=== PATIENT | male | born 1945 | race Asian ===

== ENCOUNTER 2022-05-28 11:48 | Emergency (ER) | payer MEDICARE, SELFPAY ==
--- NOTE | ~2022-05-28 | XR_ITS ---
EXAMINATION: XR knee RT min 4V DATE: 05/28/2022 14:08 INDICATION: Right knee replacement. Right knee pain. TECHNIQUE: 4 views of right knee were obtained. COMPARISON: None. FINDINGS: There is a total right knee arthroplasty. The tibia demonstrates 9 degrees medial angulatio n with respect to the tibial component. No periprosthetic lucency to suggest loosening or infection. No fracture. There is a small knee joint effusion. IMPRESSION: 1. Total right knee arthroplasty with 9 degrees medial angulation of the tibia respect to the tibial component. 2. Small right knee joint effusion. Reviewed, dictated and finalized at location A.
--- NOTE | ~2022-05-28 | XR_ITS ---
EXAMINATION: XR chest 2V DATE: 05/28/2022 12:27 INDICATION: Shortness of breath and productive cough TECHNIQUE: PA and lateral views of the chest are obtained. COMPARISON: None available FINDINGS: The lungs are free of acute opacities. No pleural effusion or pneumothorax. The cardiomedia stinal silhouette is normal. There is moderate thoracic spondylosis. Calcified coronary artery athero sclerosis is noted. IMPRESSION: 1. No acute cardiopulmonary abnormality. Reviewed, dictated and finalized at location A.
[2022-05-28 11:51] VITALS: BP 129/85; PULSE 86; RESP 16; TEMP 36.9; O2SAT 95
--- NOTE | 2022-05-28 11:51 | ECG_ITS ---
Measurements Intervals [place] Rate: 76 P: 76 MA: 159 QRS: 83 QRSD: 116 T: 89 QT: 345 QTc: 388 Interpretive Statements SINUS RHYTHM INDETERMINATE AXIS POSSIBLE RIGHT VENTRICULAR CONDUCTION DELAY [RSR (QR) IN V1/V2] LATERAL MYOCARDIAL INFARCTION , AGE UNDETERMINED INFERIOR MYOCARDIAL INFARCTION , AGE UNDETERMINED NO PREVIOUS ECG AVAILABLE FOR COMPARISON Electronically Signed On 05-28-2022 19:47:09 CDT by Shauna Xavier M.D.
[2022-05-28 12:20] LABS: Basophils Absolute Auto 0.1 K/mm3 (0.0-0.1); Basophils Percent Auto 0.6 % (0.2-1.2); Eosinophils Absolute Auto 0.3 K/mm3 (0-0.3); Eosinophils Percent Auto 3.2 % (0-4.4); Hematocrit 45.8 % (42.0-52.0); Hemoglobin 15.2 g/dL (14.0-18.0); Immature Granulocyte Absolute 0.05 K/mm3 (0.00-0.031); Immature Granulocyte Percent A 0.6 % (0-0.5); Lymphocytes Absolute Auto 1.76 K/mm3 (0.9-3.2); Lymphocytes Percent Auto 20.3 % (18.3-44.2); Mean Corpuscular HGB Conc 33.2 g/dl (32-36); Mean Corpuscular Hemoglobin 29.6 pg (26-34); Mean Corpuscular Volume 89.1 fl (80-100); Mean Platelet Volume 10.1 fl (7.4-10.4); Monocytes Absolute Auto 0.8 K/mm3 (0.1-0.6); Monocytes Percent Auto 8.6 % (2.6-8.5); Neutrophils Absolute Auto 5.8 K/mm3 (1.3-6.7); Neutrophils Percent Auto 66.7 % (45.5-73.1); Platelet Count Result 290 k/mm3 (150-375); Red Blood Count 5.14 M/mm3 (4.6-6.20); Red Cell Distribution Width 12.4 % (11.5-14.5); White Blood Count 8.7 K/mm3 (4.5-10.0)
[2022-05-28 12:30] LABS: Alanine Aminotransferase 17 U/L (6-50); Albumin Level 4.4 g/dL (3.5-5.1); Alkaline Phosphatase 110 U/L (38-126); Anion Gap 13 mmol/L (8-16); Aspartate Amino Transferase 25 U/L (17-59); Bilirubin,Total 0.6 mg/dL (0.2-1.3); Blood Urea Nitrogen 16 mg/dL (9-20); Calcium 9.7 mg/dL (8.4-10.2); Carbon Dioxide 28 mmol/L (22-30); Chloride 91 mmol/L (98-107); Estimated CRCL calculation 49 ml/min; Estimated Glomerular Filt Rate > 60; Glucose 107 mg/dL (65-110); Potassium 4.2 mmol/L (3.4-5.0); Sodium 132 mmol/L (137-145)
[2022-05-28 13:26] VITALS: PULSE 79
--- NOTE | 2022-05-28 13:33 | ED.SOB ---
HPI - SOB/Dyspnea General Chief Complaint: Shortness of Breath/Dyspnea Stated Complaint: sob, knee pain Time Seen by Provider: 05/28/22 13:19 History of Present Illness HPI Narrative: Patient is a 76-year-old male with a history of COPD, hypertension, CAD presenting with cough and shortness of breath. Patient reports that he has had a chronic cough for the last several years. States that he has also been short of breath. States that he coughs so much that his throat becomes raw and it hurts to breathe. States that his cough has been more productive lately. He was seen by PCP office earlier today and told to come to the ER for further evaluation. He denies lightheadedness, palpitations, chest pain, fevers. Patient also complains of new pain in his right knee. He has a history of a right knee replacement and says that he heard a click in it the other day and since then he has had pain while walking. Patient's daughter states that he moved here within the last couple of years and they are trying to transition all of his medical care to the area. He otherwise denies headache, numbness or weakness, abdominal pain, nausea or vomiting, diarrhea, leg swelling. History obtained using his daughter as a occupational work experience teacher. Offered using our occupational work experience teacher service but they declined. Related Data Home Medications Medication Instructions Recorded Confirmed clopidogrel 75 mg tablet mg 05/28/22 nebivolol 5 mg tablet mg 05/28/22 olmesartan 40 tablet 05/28/22 mg-hydrochlorothiazide 12.5 mg tablet tiotropium bromide 2.5 inhalation 05/28/22 mcg/actuation mist for inhalation (Spiriva Respimat) Allergies Allergy/AdvReac Type Severity Reaction Status Date / Time No Known Allergies Allergy Verified 05/28/22 13:25 Review of Systems Review of Systems: All systems reviewed & are unremarkable except as noted in HPI and below Exam Narrative: GENERAL: Well-appearing, well-nourished, and in no acute distress. HEAD: Normocephalic, atraumatic. EYES: PERRLA and EOMI. ENT: Nares clear, no rhinorrhea or epistaxis. Mucous membranes moist. NECK: Supple. CHEST: Diminished breath sounds bilaterally with diffuse wheezing. No respiratory distress. HEART: Regular rate and rhythm. No murmur heard. Normal peripheral pulses. ABDOMEN: Soft, nontender, nondistended, normal active bowel sounds. EXTREMITIES: Normal range of motion. No edema. SKIN: Warm, dry, no rash. NEURO: No focal deficits. Alert and oriented x3. PSYCH: Normal mood and affect. Course Course Emergency Course: Patient is a 76-year-old male presenting with shortness of breath and productive cough. Vitals are within normal limits. He is saturating well on room air. Exam is remarkable for diffuse wheezing. Suspect his symptoms are related to a COPD exacerbation. Will order nebulizer treatment, steroids. Will obtain labs, chest x-ray, as well as an x-ray of the right knee. EKG per my interpretation shows normal sinus rhythm, normal axis, right bundle branch block, no ST elevations or depressions. X-ray shows total right knee arthroplasty without evidence of loosening or hardware malfunction. States chest x-ray shows no acute abnormalities. Blood work is unremarkable. Patient reports significant improvement after receiving a breathing treatment. On exam, there is just a few scattered wheezes left. He continues to saturate well on room air. Will prescribe a course of steroids and some albuterol. Advised that he follow-up with pulmonology as well as orthopedics for his knee. Recommended he also follow-up with his PCP. Appropriate return precautions were given. Patient and his daughter voiced understanding and are agreeable with plan. Discharged in stable condition. Vital Signs Vital signs: Vital Signs Temperature 98.5 F 05/28/22 11:51 Pulse Rate 86 05/28/22 11:51 Respiratory Rate 16 05/28/22 11:51 Blood Pressure 129/85 05/28/22 11:51 Pulse Oximetry 95
[2022-05-28 13:47] VITALS: PULSE 74; RESP 17
[2022-05-28] MEDS: ALBUTEROL SULFATE NEB 2.5 MG/3 ML INH 5 MG INHALATION (13:49)
[2022-05-28] MEDS: IPRATROPIUM BR 0.02% INH SOLN 0.5 MG/2.5 ML VIAL INHALATION (13:49)
[2022-05-28] MEDS: methylPREDNISolone SOD SUCC 125 MG VIAL IV PUSH (13:54)
[2022-05-28 13:56] VITALS: BP 144/100; PULSE 74; RESP 16; O2SAT 97
[2022-05-28 14:26] LABS: Influenza A QL RT-PCR Negative (Negative); Influenza B QL RT-PCR Negative (Negative); SARS-CoV-2 RNA PCR Negative
[2022-05-28 16:35] VITALS: BP 144/76; PULSE 89; RESP 17; O2SAT 98
== END 2022-05-28 17:12 | disposition home or self-care (01) ==
PROVIDERS: General Practice; Emergency Provider Emergency Medicine
DX: J44.1 Chronic obstructive pulmonary disease with (acute) exacerbation (principal); M25.561 Pain in right knee; Z20.822 Contact with and (suspected) exposure to COVID-19; I10 Essential (primary) hypertension; I25.10 Atherosclerotic heart disease of native coronary artery without angina pectoris
CPT/HCPCS: 36415; 71046; 73564; 80053; 85025; 87502; 93005; 94640; 96374; 99284; C9803; J2930; U0003; U0005

== ENCOUNTER 2022-07-17 09:56 | Inpatient (IN) | payer MEDICARE, MEDICAID, SELFPAY ==
[2022-07-17] VITALS (26 sets, daily range): BP systolic 81–136; BP diastolic 44–76; PULSE 103–144; RESP 18–32; TEMP 36.4–38.1; O2SAT 88–100; BMI 26.2
--- NOTE | ~2022-07-17 | XR_ITS ---
XR abdomen/kub 1V 07/17/2022 22:51 INDICATION: Abdominal distention and discomfort TECHNIQUE: KUB COMPARISON: None FINDINGS: Bowel gas pattern is normal. There is no evidence of free air, mass, organomegaly, ascites or obstruction. No abnormal calculi are seen. The bones appear intact. Moderate lumbar spondylosis with dextroscoliosis. There is residual contrast in the bladder. IMPRESSION: 1: No acute abdominal abnormality identified. Reviewed, dictated and finalized at location A. [facility] PEDIATRICIAN
--- NOTE | ~2022-07-17 | XR_ITS ---
XR chest 1V portable DATE: 07/17/2022 11:12 INDICATION: Shortness of breath TECHNIQUE: Portable upright AP chest on 07/17/2022 at 1109 hours COMPARISON: 05/28/2022 PA and lateral chest FINDINGS: Heart size appears within normal limits for there is aortic calcification and tortuosity. Moderate bilateral pulmonary hyperinflation and suggestion of emphysematous changes including probabl e bullous change in the upper lung zones. No pulmonary consolidation, pleural effusion, pulmonary vascular congestion or pneumothorax is eviden t. Diffuse osteopenia. IMPRESSION: Bullous emphysema Aortic calcification Osteopenia Reviewed, dictated and finalized at location B. RITIES ATTORNEY
--- NOTE | ~2022-07-17 | CT_ITS ---
EXAMINATION: CTA chest PE protocol DATE: 07/17/2022 13:28 INDICATION: Hypoxia. Shortness of breath. TECHNIQUE: Computed tomography angiography (CTA) of the chest was performed with 100 mL Omnipaque-350 intravenous contrast timed to evaluate the pulmonary arteries. Coronal maximum intensity projection 3D-reconstructions were created by the technologist. Automated exposure control and iterative reconst ruction technique were employed. Exam dose: 271.04 mGy-cm total exam DLP. COMPARISON: 07/17/2022 portable AP chest FINDINGS: There is diagnostic contrast enhancement of the pulmonary arteries. There is considerable r espiratory motion which severely limits evaluation of the peripheral pulmonary arteries as well as th e lung manzano. No central pulmonary embolism is detected. Emphysematous changes of the lungs. Heart size is within normal limits. There is coronary artery calcification. Mild thoracic aortic aneurysm, the posterior thoracic aortic arch measuring up to 3.2 cm diameter. No thoracic aortic dissection is detected. Suprarenal abdominal aortic caliber and aortic caliber at th e level of the renal arteries is within normal range. No hilar or mediastinal mass lesion or lymphadenopathy. Small sliding hiatal hernia. Bilateral renal cysts are noted. Small filling defects in the dependent aspect of the gallbladder, consistent with cholelithiasis. No bowel wall thickening is evident. The adrenal glands are unremarkable. No suspicious osteolytic or osteoblastic lesions. IMPRESSION: Limited examination due to prominent respiratory motion. No central pulmonary embolism i s evident. The peripheral pulmonary arteries and the lung manzano not optimally evaluated due to the p rominent motion Emphysema Cholelithiasis is suggested Small sliding hiatal hernia Bilateral renal cysts Reviewed, dictated and finalized at Location A. Reviewed, dictated and finalized at location B. T SPECIALIST IMPRESSION: Limited examination due to prominent respiratory motion. No centra l pulmonary embolism is evident. The peripheral pulmonary arteries and the lung manzano not optimally evaluated due to the prominent motion Emphysema Cholelithiasis is suggested Small sliding hiatal hernia Bilateral renal cysts
--- NOTE | 2022-07-17 10:06 | ECG_ITS ---
Measurements Intervals [place] Rate: 139 P: DE: 0 QRS: 127 QRSD: 118 T: 58 QT: 293 QTc: 446 Interpretive Statements ATRIAL FLUTTER/TACHYCARDIA WITH RAPID VENTRICULAR RESPONSE INDETERMINATE AXIS POSSIBLE RIGHT VENTRICULAR CONDUCTION DELAY [RSR (QR) IN V1/V2] LEFT POSTERIOR FASCICULAR BLOCK [QRS AXIS > 109, INFERIOR Q] LATERAL MYOCARDIAL INFARCTION , OF INDETERMINATE AGE [40+ ms Q WAVE AND/OR ST/T ABNORMALITY IN I/aVL/V5/V6] INFERIOR MYOCARDIAL INFARCTION , PROBABLY OLD WITH POSTERIOR EXTENSION [40+ ms Q WAVE AND/OR ST/T ABNORMALITY IN II/aVFPROMINE ABNORMAL ECG COMPARED TO ECG 05/28/2022 11:59:43 ATRIAL FLUTTER NOW PRESENT LEFT POSTERIOR FASCICULAR BLOCK NOW PRESENT Electronically Signed On 07-17-2022 11:28:24 CRYSTAL MOUNTER by Deshawn Romero M.D.
--- NOTE | 2022-07-17 10:23 | ED.SOB ---
HPI - SOB/Dyspnea General Chief Complaint: Shortness of Breath/Dyspnea <Elizabeth Vieira PA-C - Last Filed: 07/17/22 18:54> Stated Complaint: shortness of breath, hx of COPD <Elizabeth Vieira PA-C - Last Filed: 07/17/22 18:54> Time Seen by Provider: 07/17/22 10:21 <SITA Ornelas Last Filed: 07/17/22 18:54> Source: patient <SITA Ornelas Last Filed: 07/17/22 18:54> Mode of arrival: ambulatory <SITA Ornelas Last Filed: 07/17/22 18:54> Limitations: language barrier <SITA Ornelas Last Filed: 07/17/22 18:54> History of Present Illness HPI Narrative: Patient is a 76-year-old male who presents the ED with report of shortness of breath. Patient is non-Ukrainian speaking, family member at bedside assisted in providing information. They report patient has been sick for the past 2 days with chills, sweats, cough, congestion, muscle aches, nausea. He developed increased difficulty breathing yesterday. He does have history of COPD. He uses 2 L nasal cannula at night, has not required oxygen throughout the day. He uses inhalers at home as needed. No nebulizer treatments. Denies chest pain, abdominal pain, vomiting. Patient is vaccinated for COVID, not influenza. <SITA Ornelas Last Filed: 07/17/22 18:54> Related Data Home Medications: Home Medications Medication Instructions Recorded Confirmed clopidogrel 75 mg tablet 75 mg PO DAILY 05/28/22 07/17/22 nebivolol 5 mg tablet 5 mg PO HS 05/28/22 07/17/22 olmesartan 40 1 tablet PO DAILY 05/28/22 07/17/22 mg-hydrochlorothiazide 12.5 mg tablet tiotropium bromide 2.5 2 inh inhalation DAILY 05/28/22 07/17/22 mcg/actuation mist for inhalation (Spiriva Respimat) albuterol sulfate 90 mcg/actuation 2 puff inhalation QID PRN 12/01/22 12/01/22 aerosol inhaler Shortness Of Breath <Elizabeth Vieira PA-C - Last Filed: 07/17/22 18:54> Allergies/Adverse Reactions: Allergies Allergy/AdvReac Type Severity Reaction Status Date / Time No Known Allergies Allergy Verified 07/17/22 11:16 <Elizabeth Vieira PA-C - Last Filed: 07/17/22 18:54> Review of Systems Review of Systems: CONSTITUTIONAL: Reports subjective fever, chills, and sweats. ENT: Reports rhinorrhea, congestion, sore throat. CARDIOVASCULAR: Denies chest pain. RESPIRATORY: Reports cough and dyspnea. GASTROINTESTINAL: Reports nausea. Denies abdominal pain, vomiting, or diarrhea. MUSCULOSKELETAL: Reports myalgias. NEUROLOGIC: Denies headache, numbness, or weakness. <Elizabeth Vieira PA-C - Last Filed: 07/17/22 18:54> All systems reviewed & are unremarkable except as noted in HPI and below <Elizabeth Vieira PA-C - Last Filed: 07/17/22 18:54> [facility] Past Medical History Medical History: Medical History (Updated 07/17/22 @ 21:04 by Yenny Ashby PA-C) Chronic obstructive pulmonary disease Chronic respiratory failure with hypoxia, on home oxygen therapy Coronary artery disease Hypertension Osteoarthritis <Elizabeth Vieira PA-C - Last Filed: 07/17/22 18:54> Surgical History Surgical History: Surgical History History of bilateral knee arthroplasty Right 2009 in [place] Left x2, 2010 and revised in 2018 in [place] History of inguinal hernia repair <Elizabeth Vieira PA-C - Last Filed: 07/17/22 18:54> Family History Family History: Family History Other Heart disease Hypertension <Elizabeth Vieira PA-C - Last Filed: 07/17/22 18:54> Social History Social History: Social History (Updated 07/17/22 @ 21:01 by Yenny Ashby PA-C) Social History: Code status: Full code. Smoking packs per day: 1 Smoking cigarettes per day: 20.0 Years smoked: 15 Smoking pack-years: 15.00 Smoking status: Form
[2022-07-17 10:38] LABS: Alveolar/Arterial O2 Gradient 19.2 mmHg; Carboxyhemoglobin 1.1 % THb (0-2.0); Fractional Inspired Oxygen 28 %; HCO3 ABG 28.7 mEq/l (22.0-26.0); Methemoglobin ABG 0.2 %THb (0-1.5); Oxygen Content ABG 20.1 %vol (16.0-22.0); Oxygen Saturation ABG 98.7 % (95.0-100.0); Oxyhemoglobin 96.6 % THb (90.0-100.0); PCO2 ABG 43.2 mmHg (35.0-45.0); PO2 ABG 129.5 mmHg (80.0-100.0); PO2 FiO2 Ratio Arterial Blood 4.63 %; Reduced Hemoglobin 2.1 %THb (0-5.0); Total Hemoglobin 14.7 g/dL (12.0-18.0)
[2022-07-17 10:39] LABS: Device NASAL CANNULA; Modified Allen's Test Pass; Site Drawn RIGHT RADIAL
[2022-07-17] MEDS: IPRATROPIUM BR 0.02% INH SOLN 0.5 MG/2.5 ML VIAL 1.5 MG INHALATION (10:44)
[2022-07-17 10:50] LABS: Hematocrit 41.7 % (42.0-52.0); Hemoglobin 14.1 g/dL (14.0-18.0); Mean Corpuscular HGB Conc 33.8 g/dl (32-36); Mean Corpuscular Hemoglobin 29.7 pg (26-34); Mean Platelet Volume 10.3 fl (7.4-10.4); Platelet Count Result 235 k/mm3 (150-375); Red Blood Count 4.74 M/mm3 (4.6-6.20); Red Cell Distribution Width 13.1 % (11.5-14.5); White Blood Count 17.5 K/mm3 (4.5-10.0)
[2022-07-17] MEDS: SODIUM CHLORIDE 0.9% IV 1,000 ML 999 ML IV CONT ×3 (11:02→13:45)
[2022-07-17 11:03] LABS: Band Neutrophils Percent 19 % (0-6); Monocytes Absolute Manual 0.17 K/mm3 (0.1-0.90); Monocytes Percent Manual 1 % (3-9); Neutrophils Absolute Manual 16.62 K/mm3 (1.3-6.7); Neutrophils Percent Manual 76 % (46-73); Platelet Estimate Adequate (Adequate); Total Cells Counted 100
[2022-07-17 11:06] LABS: Alanine Aminotransferase 19 U/L (6-50); Albumin Level 4.2 g/dL (3.5-5.1); Alkaline Phosphatase 89 U/L (38-126); Anion Gap 9 mmol/L (8-16); Aspartate Amino Transferase 31 U/L (17-59); Bilirubin,Total 1.2 mg/dL (0.2-1.3); Blood Urea Nitrogen 32 mg/dL (9-20); Calcium 8.8 mg/dL (8.4-10.2); Carbon Dioxide 28 mmol/L (22-30); Chloride 95 mmol/L (98-107); Estimated Glomerular Filt Rate 54; Glucose 168 mg/dL (65-110); Schistocytes None Seen (NORMAL); Sodium 132 mmol/L (137-145)
[2022-07-17 11:24] LABS: NT Pro B Type Natriuretic Pept 1330 pg/mL (5-100)
[2022-07-17 11:25] LABS: Influenza A QL RT-PCR Positive (Negative); Influenza B QL RT-PCR Negative (Negative); RSV RNA, RT-PCR Negative (Negative); SARS-CoV-2 RNA PCR Negative
[2022-07-17 13:12] LABS: INR 1.6
[2022-07-17 13:13] LABS: Partial Thromboplastin Time 34.5 SECONDS (22.3-36.8)
[2022-07-17 13:17] LABS: Lactic Acid Reflex 2.1 mmol/L (0.7-2.0)
[2022-07-17 14:25] LABS: Troponin I 0.064 ng/mL (0.000-0.034)
[2022-07-17 15:35] LABS: Appearance Urine Clear (Clear); Bilirubin Urine 1+ (Negative); Blood Urine Negative (Negative); Color Urine Yellow (Yellow); Glucose Urine UA Negative (Negative); Ketones Urine 1+ mg/dL (Negative); Leukocyte Esterase Ur Negative LEU/UL (Negative); Nitrate Urine Negative (Negative); Protein Urine 2+ mg/dL (Negative); Urobilinogen Urine 0.2 mg/dL (<2.0); pH Urine 5.5 (5.0-9.0)
[2022-07-17 15:45] LABS: Bacteria Urine Trace /hpf; Mucus Urine Rare /lpf; RBC Urine 0-2 /hpf (0-2); Squamous Epithelial Cell Urine Rare /hpf (Few); WBC Urine 0-3 /hpf
[2022-07-17 15:48] LABS: Add Urine Microscopic? YES
[2022-07-17 16:00] LABS: Reflex Lactic Acid Yes or No Add Lactic
--- NOTE | 2022-07-17 16:30 | PM.IMHP ---
H&P: HPI History of Present Illness Date/Time: 07/17/22 16:30 Chief Complaint: Shortness of breath. Narrative: This is a 76-year old Gujarati speaking male With COPD, chronic respiratory failure with hypoxia on 2 liters nasal cannula at night, coronary artery disease (poor historian regarding this), and hypertension who presented to the emergency department from home for evaluation of shortness of breath. He is noted to be on clopidogrel however denies having history of stroke, heart disease, or vascular disease. Due to language barrier, his granddaughter and a video interpreting program was used to obtain the following history. He has not felt well for several days with multiple symptoms including cough productive of yellow phlegm, sinus congestion, muscle aches, body aches, nausea, decreased appetite, subjective fever, and shortness of breath. Several family members have had similar symptoms. On arrival to the emergency department his blood pressure was 102/69, pulse 143 (atrial flutter/tachycardia with rapid ventricular response), respiratory rate 19, pulse ox 88% on room air, and temperature was 100.5?. He appeared to be in respiratory distress and was immediately started on BiPAP however he has been weaned off of that at the time of my evaluation and he is currently on 2 liters nasal cannula and is feeling much better. Blood pressure dropped into the 80 systolic and he was aggressively fluid resuscitated with improvement of his blood pressures which are now into the low 100s. His workup was significant for a white blood cell count of 17.5 with 19% bands, sodium 132, BUN 32, lactic acid 2.1, CRP 17.3, troponin 0.070, proBNP 1330. He tested positive for influenza A, negative for RSV and COVID. He is being admitted in this setting for further care and again at the time my evaluation he is feeling much better. He denies chest pain, pleuritic pain, palpitations, known history of cardiac dysrhythmia, vomiting, diarrhea, and dysuria. Review of Systems Review of Systems: Twelve systems were reviewed and are negative except for as per HPI. [facility] Past Medical History Medical History (Updated 07/17/22 @ 21:04 by Yenny Ashby PA-C) Chronic obstructive pulmonary disease Chronic respiratory failure with hypoxia, on home oxygen therapy Coronary artery disease Hypertension Osteoarthritis Surgical History Surgical History History of bilateral knee arthroplasty Right 2010 in [place] Left x2, 2010 and revised in 2018 in [place] History of inguinal hernia repair Family History Family History Other Heart disease Hypertension Social History Social History (Updated 07/17/22 @ 21:01 by Yenny Ashby PA-C) Social History: Code status: Full code. Smoking packs per day: 1 Smoking cigarettes per day: 20.0 Years smoked: 15 Smoking pack-years: 15.00 Smoking status: Former smoker Tobacco type: cigarettes Second hand tobacco smoke exposure: Yes Alcohol intake: never Substance use: never Substance use type: does not use Lack of Transportation: No Lack of Food: Never True Current Housing: I Have Housing Concerned About Future Housing: No Difficulty Paying Gas/Electric Bills: No Difficulty Paying for Meds: No Currently Unemployed: No Education: Don't Know Additional living arrangements comments: Originally from [facility]. Moved to the area recently from [place] to be closer to children. Additional occupation/education comments: Retired from factory work. Spiritual care concerns: No Agree to blood products: Yes Meds Home Medications and Allergies Home Medications Medication Instructions Recorded Confirmed Type clopidogrel 75 mg tablet 75 mg PO DAILY 05/28/22 07/17/22 History nebivolol 5 mg tablet 5 mg PO HS 05/28/22 07/17/22 History olmesartan 40 1 tablet PO DAILY 10
[2022-07-17 16:56] LABS: Lactic Acid Reflex 1.6 mmol/L (0.7-2.0)
[2022-07-17 17:02] LABS: Anion Gap 7 mmol/L (8-16); Blood Urea Nitrogen 27 mg/dL (9-20); Calcium 7.6 mg/dL (8.4-10.2); Carbon Dioxide 26 mmol/L (22-30); Chloride 101 mmol/L (98-107); Estimated Glomerular Filt Rate 54; Glucose 146 mg/dL (65-110); Sodium 134 mmol/L (137-145)
[2022-07-17 17:11] LABS: CRP 17.3 mg/dL (<1.0); Troponin I 0.064 ng/mL (0.000-0.034)
--- NOTE | 2022-07-17 18:28 | PC.NURSE ---
Assumed care of pt, new veg. tray received from dietary w/ meat on salad. Bala HUNTER called for veg tray per pt request.
[2022-07-17 22:21] LABS: Procalcitonin 2.2 ng/mL
[2022-07-17] MEDS: LACTATED RINGERS 1,000 ML 100 ML IV CONT (23:04)
[2022-07-18] VITALS (23 sets, daily range): BP systolic 111–140; BP diastolic 57–75; PULSE 100–125; RESP 16–30; TEMP 36.3–37.6; O2SAT 88–99
[2022-07-18] MEDS: NEBIVOLOL HCL 5 MG TABLET PO ×2 (00:11→21:51)
[2022-07-18] MEDS: CALCIUM CARBONATE (TUMS) 500 MG (200 MG ELEMENTAL) PO (00:11)
[2022-07-18] MEDS: OSELTAMIVIR PHOSPHATE 30 MG CAPSULE PO ×2 (00:11→09:49)
[2022-07-18 05:11] LABS: Hematocrit 33.1 % (42.0-52.0); Hemoglobin 11.1 g/dL (14.0-18.0); Mean Corpuscular HGB Conc 33.5 g/dl (32-36); Mean Corpuscular Hemoglobin 29.1 pg (26-34); Mean Corpuscular Volume 86.6 fl (80-100); Mean Platelet Volume 10.2 fl (7.4-10.4); Platelet Count Result 206 k/mm3 (150-375); Red Blood Count 3.82 M/mm3 (4.6-6.20); Red Cell Distribution Width 13.2 % (11.5-14.5); White Blood Count 10.9 K/mm3 (4.5-10.0)
[2022-07-18 05:22] LABS: Alanine Aminotransferase 17 U/L (6-50); Albumin Level 3.2 g/dL (3.5-5.1); Alkaline Phosphatase 74 U/L (38-126); Anion Gap 6 mmol/L (8-16); Aspartate Amino Transferase 27 U/L (17-59); Bilirubin,Total 0.7 mg/dL (0.2-1.3); Blood Urea Nitrogen 26 mg/dL (9-20); Carbon Dioxide 27 mmol/L (22-30); Chloride 99 mmol/L (98-107); Estimated CRCL calculation 46 ml/min; Estimated Glomerular Filt Rate > 60; Glucose 134 mg/dL (65-110); Magnesium 1.9 mg/dL (1.6-2.3); Potassium 3.8 mmol/L (3.4-5.0); Sodium 132 mmol/L (137-145)
[2022-07-18] MEDS: BENZONATATE 100 MG CAPSULE PO ×3 (09:49→21:51)
[2022-07-18] MEDS: ENOXAPARIN 40 MG/0.4 ML SYRINGE SUB-Q (09:50)
[2022-07-18] MEDS: CLOPIDOGREL BISULFATE 75 MG TABLET PO (09:50)
[2022-07-18] MEDS: UMECLIDINIUM BROMIDE 62.5 MCG ELLIPTA 1 PUFF INHALATION (10:11)
--- NOTE | 2022-07-18 10:24 | PM.IMPN ---
Progress Note: A&P Assessment and Plan (1) Septic shock: Code(s): A41.9 - Sepsis, unspecified organism; R65.21 - Severe sepsis with septic shock Status: Acute Assessment and Plan: Resolved. Blood pressure stable. Discontinue IV fluid. Start patient on diet. (2) Influenza A: Code(s): J10.1 - Influenza due to other identified influenza virus with other respiratory manifestations Status: Acute Assessment and Plan: He has been started on Tamiflu. (3) Acute and chronic respiratory failure with hypoxia: Code(s): J96.21 - Acute and chronic respiratory failure with hypoxia Status: Acute Assessment and Plan: Continue oxygen per nasal cannula to keep saturation above 90% (4) Elevated troponin: Code(s): R77.8 - Other specified abnormalities of plasma proteins Status: Acute Assessment and Plan: He is not having any chest pain whatsoever and likely this is due to a combination of tachycardia, hypoxia, and sepsis. Given his cardiac history, troponins will be trended to peak and an echocardiogram has been ordered. Continue clopidogrel and nebivolol. (5) Hyponatremia: Code(s): E87.1 - Hypo-osmolality and hyponatremia Status: Acute Assessment and Plan: He has chronic, mild hyponatremia and which is stable on review of previous labs. (6) Chronic obstructive pulmonary disease: Code(s): J44.9 - Chronic obstructive pulmonary disease, unspecified Status: Acute Assessment and Plan: Continue nebulizer (7) Hypertension: Code(s): I10 - Essential (primary) hypertension Status: Acute Assessment and Plan: Blood pressures have been soft as detailed above in antihypertensives are on hold. Subjective Date/time seen: 07/18/22 10:24 Patient reports cough with occasional productive sputum along with sharp chest pain Review of Systems Review of Systems: Twelve systems were reviewed and are negative except for as per HPI. Exam Narrative: General: Moderately ill-appearing gentleman sitting up in bed HEENT: PERRL, EOMI. Sclera anicteric. Tacky mucous membranes. Somewhat hard of hearing. Neck: Supple. No JVD or lymphadenopathy. Respiratory: Lung sounds are a bit diminished with some crackles at the left base and expiratory wheezes. Cardiovascular: Tachycardic with normal S1-S2. Telemetry shows sinus tachycardia with rates in the 90s to low 100s at the time my evaluation. Gastrointestinal: Abdomen is soft, nontender, and nondistended with positive bowel sounds. Skin: Warm and dry. No rash or lesions on limited exam. Extremities: No cyanosis, clubbing, or edema. Radial and pedal pulses intact. Neurological: Alert. Cranial nerves 2-12 are grossly intact. Speech is clear. No facial asymmetry. No gross focal deficits to casual conversation. Psychiatric: Pleasant and cooperative with normal mood and affect. Objective Data Vital Signs Vital Signs: Vital Signs - 24 hr 07/17/22 10:46 07/17/22 10:45 07/17/22 12:07 Temperature Pulse Rate 135 H 130 H 144 H Respiratory Rate 28 H 24 H 28 H Blood Pressure 107/66 Pulse Oximetry 99 Oxygen Delivery Oxygen Flow Rate 07/17/22 12:10 07/17/22 12:00 07/17/22 12:52 Temperature 98.1 F Pulse Rate 133 H 129 H Respiratory Rate 22 H 22 H Blood Pressure 83/58 L Pulse Oximetry 100 100 Oxygen Delivery BiPAP Oxygen Flow Rate 07/17/22 12:53 07/17/22 13:01 07/17/22 13:07 Temperature Pulse Rate 129 H 127 H 126 H Respiratory Rate 23 H 21 H 19 Blood Pressure 87/57 L 81/58 L 81/56 L Pulse Oximetry 100 100 100 Oxygen Delivery Oxygen Flow Rate 07/17/22 13:48 07/17/22 13:05 07/17/22 14:00 Temperature Pulse Rate 127 H 130 H 120 H Respiratory Rate 24 H 20 20 Blood Pressure 90/50 L 93/57 L Pulse Oximetry 99 100 100 Oxygen Delivery BiPAP Oxygen Flow Rate 07/17/22 15:00 07/17/22 14:30
[2022-07-18] MEDS: predniSONE 20 MG TABLET 40 MG PO (15:03)
--- NOTE | 2022-07-18 21:09 | ECHO_ITS ---
Patient Info Name: Marky Young Age: 76 years : 1945 Gender: Male Ht: 64 in Wt: 153 lbs BSA: 1.79 m2 HR: 113 bpm BP: 119 / 67 mmHg Exam Date: 07/18/2022 9:56 AM Exam Location: [facility] Pulmonary Patient Status: Inpatient Admit Date: 07/17/2022 Staff Ordering Physician: Yenny Ashby PA-C Patient Admitting Representative: Clarence Arvizu, GOLDEN, RT Attending Provider: Jerardo Gaines MD Referring Physician: Isma KERN; Exam Type: CA echo doppler color flow Study Info Indications R00.0 - Tachycardia, unspecified I50.9 - Heart failure, unspecified Complete two-dimensional, color flow and Doppler transthoracic echocardiogram is performed. Strain analysis performed. Summary 1. Complete two-dimensional, color flow and Doppler transthoracic echocardiogram is performed. 2. Left ventricular chamber dimension is normal. 3. Basal to apical posterior/inferior wall are hypokinetic. 4. Basal to apical lateral wall is hypokinetic. 5. Left ventricular systolic function is moderately reduced, estimated at 40-45%. 6. There is mildly increased left ventricular wall thickness. 7. Left ventricular septal wall motion is abnormal with septal motion related to bundle branch block. 8. The left ventricular diastolic function is grade I diastolic dysfunction. 9. E/e' 12 is mildly elevated. 10. Global longitudinal strain is abnormal at -16.1%. 11. There is trace tricuspid valve regurgitation. 12. Mild pulmonary hypertension, estimated pulmonary arterial systolic pressure is 49 mmHg. Left Ventricle E/e' 12 is mildly elevated. Basal to apical posterior/inferior wall are hypokinetic. Basal to apical lateral wall is hypokinetic. Global longitudinal strain is abnormal at -16.1%. Left ventricular chamber dimension is normal. Left ventricular systolic function is moderately reduced, estimated at 40-45%. There is mildly increased left ventricular wall thickness. Left ventricular septal wall motion is abnormal with septal motion related to bundle branch block. The left ventricular diastolic function is grade I diastolic dysfunction. Right Ventricle Right ventricular systolic function is normal and with normal TAPSE 1.8 cm. Right ventricular chamber dimension is normal. Left Atria Left atrial chamber dimension is normal. Right Atria Right atrial chamber dimension is normal. Aortic Valve The aortic valve is not well visualized. Cannot determine number of aortic valve leaflets. There is no aortic valve stenosis. There is no aortic valve regurgitation. Pulmonic Valve There is no pulmonic regurgitation. Mitral Valve There is no mitral valve stenosis. There is no mitral valve regurgitation. Tricuspid Valve There is trace tricuspid valve regurgitation. Mild pulmonary hypertension, estimated pulmonary arterial systolic pressure is 49 mmHg. Pericardium/Pleural There is no pericardial effusion. Inferior Vena Cava Normal inferior vena cava with >50% collapse upon inspiration consistent with normal right atrial pressure, 5 mmHg. Aorta The aortic root size at the sinus of Valsalva is normal. Left Ventricular Outflow Tract Name Value Normal LVOT 2D LVOT Diameter 2.0 cm LVOT
[2022-07-18] MEDS: OSELTAMIVIR PHOSPHATE ORAL SUSP 30 MG/5 ML SYRINGE PO (21:55)
[2022-07-18] MEDS: ACETAMINOPHEN 325 MG TABLET 650 MG PO (22:07)
[2022-07-19] VITALS (16 sets, daily range): BP systolic 119–153; BP diastolic 68–88; PULSE 84–110; RESP 16–22; TEMP 36.2–36.5; O2SAT 92–98
[2022-07-19] MEDS: ALBUTEROL SULFATE NEB 2.5 MG/3 ML INH INHALATION ×4 (03:09→21:23)
[2022-07-19] MEDS: ENOXAPARIN 40 MG/0.4 ML SYRINGE SUB-Q (09:04)
[2022-07-19] MEDS: ACETAMINOPHEN 325 MG TABLET 650 MG PO ×2 (09:04→16:47)
[2022-07-19] MEDS: BENZONATATE 100 MG CAPSULE PO ×2 (09:06→16:48)
[2022-07-19] MEDS: predniSONE 20 MG TABLET 40 MG PO (09:06)
[2022-07-19] MEDS: CLOPIDOGREL BISULFATE 75 MG TABLET PO (09:07)
[2022-07-19] MEDS: OSELTAMIVIR PHOSPHATE ORAL SUSP 30 MG/5 ML SYRINGE PO ×2 (09:16→20:24)
[2022-07-19] MEDS: UMECLIDINIUM BROMIDE 62.5 MCG ELLIPTA 1 PUFF INHALATION (14:39)
--- NOTE | 2022-07-19 17:30 | PM.IMPN ---
Progress Note: A&P Assessment and Plan (1) Septic shock: Code(s): A41.9 - Sepsis, unspecified organism; R65.21 - Severe sepsis with septic shock Status: Acute Assessment and Plan: Resolved. Blood pressure stable. Discontinue IV fluid. Start patient on diet. 07/19/2022 interval history: patient is 76-year-old male presented with shortness of breath is found to have influenza A and being treated with Tamiflu 10/19, CTA of the chest did not show any PE no there is a concern for pneumonia, upon arrival patient tropes were elevated mild and flat patient denies any chest, most likely demand ischemia due to shortness of breath, patient also has history of COPD being treated with methylprednisone and bronchodilator, blood culture no growth so far, I able to communicate with him in Hindhi, patient states is feeling much better compared to when he arrived it does feel short of breath and symptoms are improved bronchodilator, will continue to monitor will have a PT OT all in the patient patient may benefit from rehab. (2) Influenza A: Code(s): J10.1 - Influenza due to other identified influenza virus with other respiratory manifestations Status: Acute Assessment and Plan: He has been started on Tamiflu. (3) Acute and chronic respiratory failure with hypoxia: Code(s): J96.21 - Acute and chronic respiratory failure with hypoxia Status: Acute Assessment and Plan: Continue oxygen per nasal cannula to keep saturation above 90% (4) Elevated troponin: Code(s): R77.8 - Other specified abnormalities of plasma proteins Status: Acute Assessment and Plan: He is not having any chest pain whatsoever and likely this is due to a combination of tachycardia, hypoxia, and sepsis. Given his cardiac history, troponins will be trended to peak and an echocardiogram has been ordered. Continue clopidogrel and nebivolol. (5) Hyponatremia: Code(s): E87.1 - Hypo-osmolality and hyponatremia Status: Acute Assessment and Plan: He has chronic, mild hyponatremia and which is stable on review of previous labs. (6) Chronic obstructive pulmonary disease: Code(s): J44.9 - Chronic obstructive pulmonary disease, unspecified Status: Acute Assessment and Plan: Continue nebulizer (7) Hypertension: Code(s): I10 - Essential (primary) hypertension Status: Acute Assessment and Plan: Blood pressures have been soft as detailed above in antihypertensives are on hold. Subjective Date/time seen: 07/19/22 17:30 HPI-Narrative: This is a 76-year old Gujarati speaking male? With COPD, chronic respiratory failure with hypoxia on 2 liters nasal cannula at night, coronary artery disease (poor historian regarding this), and hypertension who presented to the emergency department from home for evaluation of shortness of breath. He is noted to be on clopidogrel however denies having history of stroke, heart disease, or vascular disease. Due to language barrier, his granddaughter and a video interpreting program was used to obtain the following history. He has not felt well for several days with multiple symptoms including cough productive of yellow phlegm, sinus congestion, muscle aches, body aches, nausea, decreased appetite, subjective fever, and shortness of breath. Several family members have had similar symptoms. On arrival to the emergency department his blood pressure was 102/69, pulse 143 (atrial flutter/tachycardia with rapid ventricular response), respiratory rate 19, pulse ox 88% on room air, and temperature was 100.5?. He appeared to be in respiratory distress and was immediately started on BiPAP however he has been weaned off of that at the time of my evaluation and he is currently on 2 liters nasal cannula and is feeling much better. Blood pressure dropped into the 80 systolic and he was aggressively fluid resuscitated with improvement of
[2022-07-19] MEDS: NEBIVOLOL HCL 5 MG TABLET PO (20:25)
[2022-07-20] VITALS (19 sets, daily range): BP systolic 128–158; BP diastolic 77–99; PULSE 82–114; RESP 16–22; TEMP 36.4–36.8; O2SAT 94–98
[2022-07-20 05:18] LABS: Hematocrit 32.8 % (42.0-52.0); Hemoglobin 10.8 g/dL (14.0-18.0); Mean Corpuscular HGB Conc 32.9 g/dl (32-36); Mean Corpuscular Hemoglobin 29.2 pg (26-34); Mean Corpuscular Volume 88.6 fl (80-100); Mean Platelet Volume 10.2 fl (7.4-10.4); Platelet Count Result 236 k/mm3 (150-375); Red Cell Distribution Width 12.6 % (11.5-14.5); White Blood Count 8.4 K/mm3 (4.5-10.0)
[2022-07-20 05:34] LABS: Anion Gap 2 mmol/L (8-16); Blood Urea Nitrogen 20 mg/dL (9-20); Calcium 8.4 mg/dL (8.4-10.2); Carbon Dioxide 33 mmol/L (22-30); Chloride 93 mmol/L (98-107); Estimated CRCL calculation 57 ml/min; Estimated Glomerular Filt Rate > 60; Glucose 125 mg/dL (65-110); Magnesium 1.9 mg/dL (1.6-2.3); Potassium 4.1 mmol/L (3.4-5.0); Sodium 128 mmol/L (137-145)
[2022-07-20] MEDS: guaiFENesin/DEXTROMETHORPHAN 10 ML UDC PO ×2 (09:16→14:23)
[2022-07-20] MEDS: ACETAMINOPHEN 325 MG TABLET 650 MG PO ×2 (09:16→17:28)
[2022-07-20] MEDS: OSELTAMIVIR PHOSPHATE ORAL SUSP 30 MG/5 ML SYRINGE PO ×2 (09:16→21:20)
[2022-07-20] MEDS: ENOXAPARIN 40 MG/0.4 ML SYRINGE SUB-Q (09:17)
[2022-07-20] MEDS: CLOPIDOGREL BISULFATE 75 MG TABLET PO (09:17)
[2022-07-20] MEDS: predniSONE 20 MG TABLET 40 MG PO (09:18)
[2022-07-20] MEDS: BENZONATATE 100 MG CAPSULE PO ×3 (09:19→17:28)
[2022-07-20] MEDS: ALBUTEROL SULFATE NEB 2.5 MG/3 ML INH INHALATION ×2 (09:25→14:11)
--- NOTE | 2022-07-20 15:29 | PM.IMPN ---
Progress Note: A&P Assessment and Plan (1) Septic shock: Code(s): A41.9 - Sepsis, unspecified organism; R65.21 - Severe sepsis with septic shock Status: Acute Assessment and Plan: Resolved. Blood pressure stable. Discontinue IV fluid. Start patient on diet. 07/20/2022 interval history: patient is 76-year-old male presented with shortness of breath is found to have influenza A and being treated with Tamiflu 10/19, CTA of the chest did not show any PE no there is a concern for pneumonia, upon arrival patient tropes were elevated mild and flat patient denies any chest, most likely demand ischemia due to shortness of breath, patient also has history of COPD being treated with prednisone and bronchodilator, blood culture no growth so far, I am able to communicate with him in Hind[place], patient states is feeling much better compared to when he arrived it does feel short of breath and symptoms are improved with bronchodilator, will discharge the patient home tomorrow, will continue to monitor will have a PT OT all in the patient patient may benefit from rehab. (2) Influenza A: Code(s): J10.1 - Influenza due to other identified influenza virus with other respiratory manifestations Status: Acute Assessment and Plan: He has been started on Tamiflu. (3) Acute and chronic respiratory failure with hypoxia: Code(s): J96.21 - Acute and chronic respiratory failure with hypoxia Status: Acute Assessment and Plan: Continue oxygen per nasal cannula to keep saturation above 90% (4) Elevated troponin: Code(s): R77.8 - Other specified abnormalities of plasma proteins Status: Acute Assessment and Plan: He is not having any chest pain whatsoever and likely this is due to a combination of tachycardia, hypoxia, and sepsis. Given his cardiac history, troponins will be trended to peak and an echocardiogram has been ordered. Continue clopidogrel and nebivolol. (5) Hyponatremia: Code(s): E87.1 - Hypo-osmolality and hyponatremia Status: Acute Assessment and Plan: He has chronic, mild hyponatremia and which is stable on review of previous labs. (6) Chronic obstructive pulmonary disease: Code(s): J44.9 - Chronic obstructive pulmonary disease, unspecified Status: Acute Assessment and Plan: Continue nebulizer (7) Hypertension: Code(s): I10 - Essential (primary) hypertension Status: Acute Assessment and Plan: Blood pressures have been soft as detailed above in antihypertensives are on hold. Subjective Date/time seen: 07/20/22 15:29 07/20/2022 interval history: patient is 76-year-old male presented with shortness of breath is found to have influenza A and being treated with Tamiflu 3/, CTA of the chest did not show any PE no there is a concern for pneumonia, upon arrival patient tropes were elevated mild and flat patient denies any chest, most likely demand ischemia due to shortness of breath, patient also has history of COPD being treated with prednisone and bronchodilator, blood culture no growth so far, I am able to communicate with him in Hind[place], patient states is feeling much better compared to when he arrived it does feel short of breath and symptoms are improved with bronchodilator, will discharge the patient home tomorrow, will continue to monitor will have a PT OT all in the patient patient may benefit from rehab. Exam Narrative: Patient is comfortable, NAD HEENT: eyes are clear and none icteric LUNGS: bilateral fair air entry with rales and rhonchi. HEART: RR S1S2 ABD: BS+, Soft and nontender Lower extremities: no edema SKIN: nonjaundiced Neuro: grossly intact. Objective Data Vital Signs Vital Signs: Vital Signs - 24 hr 07/19/22 16:00 07/19/22 20:25 07/19/22 20:00 Temperature 97.3 F L 97.6 F Pulse Rate 110 H 97 100 Respiratory Rate 20 20 Blood Pressure 153/88 H
[2022-07-20] MEDS: NEBIVOLOL HCL 5 MG TABLET PO (21:21)
[2022-07-21] VITALS (18 sets, daily range): BP systolic 135–159; BP diastolic 67–89; PULSE 86–122; RESP 18–24; TEMP 36.6–36.8; O2SAT 84–97
[2022-07-21 05:36] LABS: Hematocrit 33.1 % (42.0-52.0); Hemoglobin 11.1 g/dL (14.0-18.0); Mean Corpuscular HGB Conc 33.5 g/dl (32-36); Mean Corpuscular Hemoglobin 28.8 pg (26-34); Mean Corpuscular Volume 85.8 fl (80-100); Mean Platelet Volume 9.8 fl (7.4-10.4); Platelet Count Result 262 k/mm3 (150-375); Red Blood Count 3.86 M/mm3 (4.6-6.20); Red Cell Distribution Width 12.5 % (11.5-14.5); White Blood Count 8.3 K/mm3 (4.5-10.0)
[2022-07-21 05:46] LABS: Anion Gap 3 mmol/L (8-16); Blood Urea Nitrogen 19 mg/dL (9-20); Calcium 8.2 mg/dL (8.4-10.2); Carbon Dioxide 34 mmol/L (22-30); Chloride 94 mmol/L (98-107); Estimated CRCL calculation 57 ml/min; Estimated Glomerular Filt Rate > 60; Glucose 103 mg/dL (65-110); Potassium 4.2 mmol/L (3.4-5.0); Sodium 131 mmol/L (137-145)
[2022-07-21] MEDS: UMECLIDINIUM BROMIDE 62.5 MCG ELLIPTA 1 PUFF INHALATION (09:09)
[2022-07-21] MEDS: predniSONE 20 MG TABLET 40 MG PO (09:55)
[2022-07-21] MEDS: ENOXAPARIN 40 MG/0.4 ML SYRINGE SUB-Q (09:55)
[2022-07-21] MEDS: CLOPIDOGREL BISULFATE 75 MG TABLET PO (09:55)
[2022-07-21] MEDS: OSELTAMIVIR PHOSPHATE ORAL SUSP 30 MG/5 ML SYRINGE PO (09:55)
[2022-07-21] MEDS: BENZONATATE 100 MG CAPSULE PO ×2 (09:55→13:50)
[2022-07-21 13:56] LABS: Mycoplasma IgM Antibody Titer 116 U/mL (<770)
--- NOTE | 2022-07-21 13:57 | PCRCNOTE ---
HOME O@ EVAL COMPLETE. PATIENT REQUIRES 4LPM WITH REST AND 5LPM WITH ACTIVITY. PATIENT SET UP WITH IV RESPIRATORY CARE. [phone]
--- NOTE | 2022-07-21 14:00 | HOMEO2EVAL ---
Evaluation was performed at [facility] Home Oxygen Evaluation RC: Home Oxygen (O2) Evaluation Start: 07/21/22 11:31 Freq: ONCE Status: Active Protocol: RPE Activity Type Activity Date Activity User E-sign Co-sign Detail Recorded Client Recorded Date Recorded By Document 07/21/22 12:30 PK [email or web address] 07/21/22 13:57 PK Document 07/21/22 12:35 [email or web address] [email or web address] 07/21/22 13:57 PKH Document 07/21/22 12:40 PK [email or web address] 07/21/22 13:57 PK Document 07/21/22 12:45 PK [email or web address] 07/21/22 13:57 PK Document 07/21/22 12:50 PK [email or web address] 07/21/22 13:57 PK Document 07/21/22 12:55 PK [email or web address] 07/21/22 13:57 PK Document 07/21/22 13:00 PK [email or web address] 07/21/22 13:57 PK Document 07/21/22 13:25 PK [email or web address] 07/21/22 13:57 PKH 07/21/22 07/21/22 07/21/22 12:30 12:35 12:40 Home O2 Evaluation [Oxygen] -Test Phase Resting Resting Resting -Oxygen Delivery Room Air Nasal Cannula Nasal Cannula -Oxygen Flow Rate (L/min) 1 2 [Pulse Oximetry] -Pulse Oximetry (90-100 %) 84 L 84 L 86 L [Pulse Rate] -Pulse Rate (60-100 beats/min) 120 H 120 H 120 H [Charges] -Treatment Charges O2 Evaluation - Inpatient 07/21/22 07/21/22 07/21/22 12:45 12:50 12:55 Home O2 Evaluation [Oxygen] -Test Phase Resting Resting Exercise -Oxygen Delivery Nasal Cannula -Oxygen Flow Rate (L/min) 3 4 4 [Pulse Oximetry] -Pulse Oximetry (90-100 %) 87 L 90 87 L [Pulse Rate] -Pulse Rate (60-100 beats/min) 119 H 118 H 120 H [Charges] -Treatment Charges 07/21/22 07/21/22 13:00 13:25 Home O2 Evaluation [Oxygen] -Test Phase Resting Resting -Oxygen Delivery Nasal Cannula -Oxygen Flow Rate (L/min) 5 4 [Pulse Oximetry] -Pulse Oximetry (90-100 %) 90 90 [Pulse Rate] -Pulse Rate (60-100 beats/min) 122 H 120 H [Charges] -Treatment Charges
--- NOTE | 2022-07-21 15:06 | PM.DS ---
DS: Admitting Diagnosis Discharge Date 07/22/2022 Admitting Diagnosis shortness of breath DS: Discharge Diagnosis Discharge Diagnosis (1) Septic shock: Code(s): A41.9 - Sepsis, unspecified organism; R65.21 - Severe sepsis with septic shock Status: Acute Assessment and Plan: Resolved. Blood pressure stable. Discontinue IV fluid. Start patient on diet. 07/20/2022 interval history: patient is 76-year-old male presented with shortness of breath is found to have influenza A and being treated with Tamiflu 10/19, CTA of the chest did not show any PE no there is a concern for pneumonia, upon arrival patient tropes were elevated mild and flat patient denies any chest, most likely demand ischemia due to shortness of breath, patient also has history of COPD being treated with prednisone and bronchodilator, blood culture no growth so far, I am able to communicate with him in Hind[place], patient states is feeling much better compared to when he arrived it does feel short of breath and symptoms are improved with bronchodilator, will discharge the patient home tomorrow, will continue to monitor will have a PT OT all in the patient patient may benefit from rehab. (2) Influenza A: Code(s): J10.1 - Influenza due to other identified influenza virus with other respiratory manifestations Status: Acute Assessment and Plan: He has been started on Tamiflu. (3) Acute and chronic respiratory failure with hypoxia: Code(s): J96.21 - Acute and chronic respiratory failure with hypoxia Status: Acute Assessment and Plan: Continue oxygen per nasal cannula to keep saturation above 90% (4) Elevated troponin: Code(s): R77.8 - Other specified abnormalities of plasma proteins Status: Acute Assessment and Plan: He is not having any chest pain whatsoever and likely this is due to a combination of tachycardia, hypoxia, and sepsis. Given his cardiac history, troponins will be trended to peak and an echocardiogram has been ordered. Continue clopidogrel and nebivolol. (5) Hyponatremia: Code(s): E87.1 - Hypo-osmolality and hyponatremia Status: Acute Assessment and Plan: He has chronic, mild hyponatremia and which is stable on review of previous labs. (6) Chronic obstructive pulmonary disease: Code(s): J44.9 - Chronic obstructive pulmonary disease, unspecified Status: Acute Assessment and Plan: Continue nebulizer (7) Hypertension: Code(s): I10 - Essential (primary) hypertension Status: Acute Assessment and Plan: Blood pressures have been soft as detailed above in antihypertensives are on hold. DS: Summary Hospital Course Reason for hospitalization: Shortness of breath. Narrative: This is a 76-year old Gujarati speaking male? With COPD, chronic respiratory failure with hypoxia on 2 liters nasal cannula at night, coronary artery disease (poor historian regarding this), and hypertension who presented to the emergency department from home for evaluation of shortness of breath. He is noted to be on clopidogrel however denies having history of stroke, heart disease, or vascular disease. Due to language barrier, his granddaughter and a video interpreting program was used to obtain the following history. He has not felt well for several days with multiple symptoms including cough productive of yellow phlegm, sinus congestion, muscle aches, body aches, nausea, decreased appetite, subjective fever, and shortness of breath. Several family members have had similar symptoms. On arrival to the emergency department his blood pressure was 102/69, pulse 143 (atrial flutter/tachycardia with rapid ventricular response), respiratory rate 19, pulse ox 88% on room air, and temperature was 100.5?. He appeared to be in respiratory distress and was immediately started on BiPAP however he has been weaned off of that at the time of my evaluation and
--- NOTE | 2022-07-21 18:00 | PC.NURSE ---
Pharmacist, Haley Rodriguez, at [facility] requesting additional 7 doses of Tamiflu to make a total of 10 doses the patient will receive. Dr. Peterson notified. Verbal order given for 7 additional doses.
== END 2022-07-21 16:32 | disposition home or self-care (01) | DRG 189 ==
LOC: ANHED 15:40 → ANHIMU 18:53
PROVIDERS: Physician Assistant; Admitting Provider Chiropractor; Emergency Provider Emergency Medicine; PCP Family Medicine; Visit Provider Family Medicine
DX: J96.21 Acute and chronic respiratory failure with hypoxia (principal); E87.1 Hypo-osmolality and hyponatremia; J10.1 Influenza due to other identified influenza virus with other respiratory manifestations; Z99.81 Dependence on supplemental oxygen; J44.9 Chronic obstructive pulmonary disease, unspecified; I10 Essential (primary) hypertension; I25.10 Atherosclerotic heart disease of native coronary artery without angina pectoris; Z20.822 Contact with and (suspected) exposure to COVID-19; Z96.653 Presence of artificial knee joint, bilateral; Z82.49 Family history of ischemic heart disease and other diseases of the circulatory system; Z87.891 Personal history of nicotine dependence; Z79.51 Long term (current) use of inhaled steroids; Z79.899 Other long term (current) drug therapy
CPT/HCPCS: 36415; 36600; 51701; 71045; 71275; 74018; 80048; 80053; 81001; 82375; 82805; 83050; 83605; 83735; 83880; 84145; 84484; 85025; 85027; 85610; 85730; 86140; 86738; 87040; 87637; 93005; 93306; 94002; 94003; 94618; 94640; 96361; 96365; 99285; A9270; C1751; J0131; J0456; J0696; J1650; J7030; J7120; J7512; Q9967

== ENCOUNTER 2022-08-05 17:16 | Outpatient (CLI) | payer MEDICARE, SELFPAY ==
--- NOTE | ~2022-08-05 | XR_ITS ---
XR chest 2V DATE: 08/05/2022 17:39 INDICATION: Acute and chronic respiratory failure. Shortness of breath. TECHNIQUE: PA and lateral views COMPARISON: 07/17/2022 CT pulmonary scan 07/17/2022 portable AP chest FINDINGS: Heart size within normal range. Is aortic calcification and tortuosity. No hilar or mediast inal enlargement. Bilateral hyperinflation, increased retrosternal airspace and relative flattening the diaphragm consi stent with COPD. There is mild infiltrate or atelectasis in the left lung base and to a lesser extent right lung base. No pulmonary consolidation. No pleural effusion or pulmonary vascular congestion or pneumothorax. IMPRESSION: COPD Mild infiltrate or atelectasis in the lung bases, left greater than right Aortic atherosclerosis Reviewed, dictated and finalized at location A. TORCH BRAZIER
== END 2022-08-05 17:17 | disposition home or self-care (01) ==
LOC: ANHIMG 17:19
PROVIDERS: PCP Family Medicine; Visit Provider Nurse Practitioner Gerontology
DX: J96.21 Acute and chronic respiratory failure with hypoxia (principal); I25.10 Atherosclerotic heart disease of native coronary artery without angina pectoris
CPT/HCPCS: 71046

== ENCOUNTER 2023-01-05 10:24 | Outpatient (CLI) | payer MEDICARE, SELFPAY ==
--- NOTE | ~2023-01-05 | XR_ITS ---
XR chest 2V 01/05/2023 11:05 Indication: History of COPD Procedure: PA and lateral views of the chest Comparison: Comparison to multiple prior studies sequentially, with oldest reviewed study dated 05/17. Findings: Heart size normal. No focal air space disease, pulmonary edema, pleural effusion or suspect ed pneumothorax. There is coronary atherosclerosis. There is atherosclerosis and ectasia of the thora cic aorta. The lungs are hyperinflated which is consistent with, but not diagnostic of chronic obstru ctive pulmonary disease. Impression: 1: No acute cardiopulmonary disease. Reviewed, dictated and finalized at location B. Impression: 1: No acute cardiopulmonary disease.
--- NOTE | ~2023-01-05 | XR_ITS ---
EXAMINATION: XR finger 2nd LT min 2V DATE: 01/05/2023 11:05 INDICATION: Localized swelling, mass and lump at the left second digit . Gout. TECHNIQUE: Dorsal palmar, lateral and 2 oblique views of the left second digit were obtained COMPARISON: None FINDINGS: Minimal ulnar subluxation at the second proximal interphalangeal joint. There is also mild palmar sub luxation at the third metacarpophalangeal joint. No fractures. Severe osteoarthritis at the second me tacarpophalangeal joint. Moderate osteoarthritis at the second proximal interphalangeal joint and mil d osteoarthritis at the second distal interphalangeal joint predominance soft tissue about the second proximal interphalangeal joint and base of the middle phalanx. Small ovoid calcification dorsal to t he neck of the second proximal phalanx which could represent heterotopic ossification related to old trauma, degenerative loose body or other nonspecific dystrophic calcification. No erosions to suggest an inflammatory arthritis. IMPRESSION: 1. 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 2. Nonspecific soft tissue swelling about the second proximal interphalangeal joint and the base of t he middle phalanx. Differential would include an inflammatory/crystalline arthritis although there ar e no erosions to more specifically suggest this. Reviewed, dictated and finalized at location A. IMPRESSION: 1. 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 2. Nonspecific soft tissue swelling about the second proximal interphalangeal j oint and the base of the middle phalanx. Differential would include an inflamma tory/crystalline arthritis although there are no erosions to more specifically suggest this.
[2023-01-05 11:07] LABS: Basophils Absolute Auto 0.1 K/mm3 (0.0-0.1); Basophils Percent Auto 0.8 % (0.2-1.2); Eosinophils Absolute Auto 0.4 K/mm3 (0-0.3); Eosinophils Percent Auto 3.9 % (0-4.4); Hematocrit 47.5 % (42.0-52.0); Hemoglobin 15.4 g/dL (14.0-18.0); Immature Granulocyte Absolute 0.19 K/mm3 (0.00-0.031); Immature Granulocyte Percent A 1.7 % (0-0.5); Lymphocytes Absolute Auto 2.14 K/mm3 (0.9-3.2); Lymphocytes Percent Auto 19.6 % (18.3-44.2); Mean Corpuscular HGB Conc 32.4 g/dl (32-36); Mean Corpuscular Hemoglobin 28.9 pg (26-34); Mean Corpuscular Volume 89.3 fl (80-100); Mean Platelet Volume 9.1 fl (7.4-10.4); Monocytes Absolute Auto 0.8 K/mm3 (0.1-0.6); Monocytes Percent Auto 7.6 % (2.6-8.5); Neutrophils Absolute Auto 7.2 K/mm3 (1.3-6.7); Neutrophils Percent Auto 66.4 % (45.5-73.1); Platelet Count Result 303 k/mm3 (150-375); Red Blood Count 5.32 M/mm3 (4.6-6.20); Red Cell Distribution Width 12.4 % (11.5-14.5); White Blood Count 10.9 K/mm3 (4.5-10.0)
[2023-01-05 11:31] LABS: Alanine Aminotransferase 22 U/L (6-50); Albumin Level 4.1 g/dL (3.5-5.1); Alkaline Phosphatase 129 U/L (38-126); Anion Gap 2 mmol/L (8-16); Aspartate Amino Transferase 30 U/L (17-59); Bilirubin,Total 0.7 mg/dL (0.2-1.3); Blood Urea Nitrogen 20 mg/dL (9-20); Calcium 8.8 mg/dL (8.4-10.2); Carbon Dioxide 35 mmol/L (22-30); Chloride 95 mmol/L (98-107); Estimated Glomerular Filt Rate > 60; Glucose 99 mg/dL (65-110); Potassium 4.8 mmol/L (3.4-5.0); Sodium 132 mmol/L (137-145); Uric Acid 4.9 mg/dL (3.5-8.5)
== END 2023-01-05 10:25 | disposition home or self-care (01) ==
PROVIDERS: PCP Family Medicine; Visit Provider Nurse Practitioner Gerontology
DX: R22.30 Localized swelling, mass and lump, unspecified upper limb (principal); J44.9 Chronic obstructive pulmonary disease, unspecified; M19.042 Primary osteoarthritis, left hand
CPT/HCPCS: 36415; 71046; 73140; 80053; 84550; 85025

== ENCOUNTER 2023-02-27 12:25 | Outpatient (CLI) | payer MEDICARE, SELFPAY ==
[2023-02-27 13:05] VITALS: PULSE 81; O2SAT 93
[2023-02-27 13:10] VITALS: PULSE 97; O2SAT 86
[2023-02-27 13:15] VITALS: PULSE 99; O2SAT 88
[2023-02-27 13:20] VITALS: PULSE 98; O2SAT 91
[2023-02-27 13:35] VITALS: PULSE 82; O2SAT 93
--- NOTE | 2023-02-27 14:05 | HOMEO2EVAL ---
Evaluation was performed at [facility] Home Oxygen Evaluation RC: Home Oxygen (O2) Evaluation Start: 02/27/23 14:01 Freq: Status: Active Protocol: RPE Activity Type Activity Date Activity User E-sign Co-sign Detail Recorded Client Recorded Date Recorded By Document 02/27/23 13:05 DJO [email or web address] 02/27/23 14:05 DJO Document 02/27/23 13:10 DJO [email or web address] 02/27/23 14:05 DJO Document 02/27/23 13:15 DJO [email or web address] 02/27/23 14:05 DJO Document 02/27/23 13:20 DJO [email or web address] 02/27/23 14:05 DJO Document 02/27/23 13:35 DJO [email or web address] 02/27/23 14:05 DJO 02/27/23 02/27/23 02/27/23 13:05 13:10 13:15 Home O2 Evaluation [Oxygen] -Test Phase Resting Exercise Exercise -Oxygen Delivery Room Air Room Air Nasal Cannula -Oxygen Flow Rate (L/min) 1 [Pulse Oximetry] -Pulse Oximetry (90-100 %) 93 86 L 88 L [Pulse Rate] -Pulse Rate (60-100 beats/min) 81 97 99 [Evaluation] -Activity Tolerance [Charges] -Treatment Charges O2 Evaluation - Outpatient 02/27/23 02/27/23 13:20 13:35 Home O2 Evaluation [Oxygen] -Test Phase Exercise Resting -Oxygen Delivery Nasal Cannula Room Air -Oxygen Flow Rate (L/min) 2 [Pulse Oximetry] -Pulse Oximetry (90-100 %) 91 93 [Pulse Rate] -Pulse Rate (60-100 beats/min) 98 82 [Evaluation] -Activity Tolerance Good [Charges] -Treatment Charges
--- NOTE | 2023-03-02 13:17 | WPDPFTINT ---
PFT Procedure Performed PFT Procedure Performed Plethysmography (Lung Vol) Diffusing Cap (DLCO) Flow Vol Loop Spirometry w/o Bronchodil PFT Interpretation DOS: 02/27/2023 REQUESTING: Bradley Colunga APRN REASON FOR TESTING: COPD PULMONARY FUNCTION TESTS Results are not reliable and reproducible. The respiratory therapist had difficulty communicating instructions for the procedure. Spirometry: FEV1 is 0.58 L, 23% predicted, extremely low. FVC is 1.53 L, 47% predicted, very low. The FVE1/FVC ratio is 38%, low, consistent iwth airflow obstruction. No bronchodilator was given. Lung volumes: TLC is 8.79 L, 153%, elevated consistent with severe hyperinflation. RV is 7.35 L, 323% predicted, severe air trapping. RV/TLC is 82@%, extremely high. Diffusion: DLCO is 5.9, severely decreased, 27% predicted. DLCO/VA is 1.88, 46% predicted, below normal, partial correction for alveolar volume. Flow volume loop: Severe coving of the expiratory limb. IMPRESSION: Severe obstructive ventilatory impairment with severe hyperinflation and severe air trapping. severely decreased diffusion with partial correction for alveolar volume. This is consistent with emphysema. No old studies to compare. Doris Marie MD
== END 2023-02-27 12:26 | disposition home or self-care (01) ==
PROVIDERS: PCP Family Medicine; Visit Provider Nurse Practitioner Family
DX: J44.9 Chronic obstructive pulmonary disease, unspecified (principal); R06.09 Other forms of dyspnea; R94.2 Abnormal results of pulmonary function studies
CPT/HCPCS: 94375; 94618; 94726; 94729

== ENCOUNTER 2023-06-18 15:27 | Outpatient (CLI) | payer MEDICARE, SELFPAY ==
[2023-06-18 16:48] LABS: Creatine Kinase 142 U/L (55-170)
[2023-06-18 16:50] LABS: Alanine Aminotransferase 15 U/L (6-50); Albumin Level 4.5 g/dL (3.5-5.1); Alkaline Phosphatase 120 U/L (38-126); Anion Gap 5 mmol/L (8-16); Aspartate Amino Transferase 27 U/L (17-59); Blood Urea Nitrogen 19 mg/dL (9-20); Calcium 9.8 mg/dL (8.4-10.2); Carbon Dioxide 31 mmol/L (22-30); Chloride 96 mmol/L (98-107); Estimated Glomerular Filt Rate > 60; Glucose 94 mg/dL (65-110); Magnesium 1.9 mg/dL (1.6-2.3); Potassium 4.1 mmol/L (3.4-5.0); Sodium 132 mmol/L (137-145)
[2023-06-18 17:04] LABS: NT Pro B Type Natriuretic Pept 534 pg/mL (19.9-100)
[2023-06-19 00:44] LABS: Hemoglobin A1C 5.8 % (<5.7)
== END 2023-06-18 15:28 | disposition home or self-care (01) ==
PROVIDERS: PCP Family Medicine; Visit Provider Specialist
DX: E78.5 Hyperlipidemia, unspecified (principal)
CPT/HCPCS: 36415; 80053; 82248; 82550; 83036; 83735; 83880